=== PATIENT | male | born 1955 | race Caucasian/White ===

== ENCOUNTER → 2020-05-12 11:20 | Outpatient (BNVA) | payer MEDICARE, OTHER, SELFPAY | PROVIDERS: Visit Provider Family Medicine | DX: I10 Essential (primary) hypertension (principal) | CPT/HCPCS: 80053; 80061; 85025 ==

== ENCOUNTER → 2020-09-01 12:10 | Outpatient (BNVA) | payer MEDICARE, OTHER, SELFPAY | PROVIDERS: Visit Provider Family Medicine | DX: C61 Malignant neoplasm of prostate (principal) | CPT/HCPCS: 84153; 84403 ==

== ENCOUNTER → 2020-09-23 09:21 | Outpatient (BNVA) | payer MEDICARE, OTHER, SELFPAY | PROVIDERS: Visit Provider Radiology Radiation Oncology | DX: C61 Malignant neoplasm of prostate (principal) | CPT/HCPCS: 73030; 73502 ==

== ENCOUNTER → 2020-12-15 13:57 | Outpatient (BNVA) | payer MEDICARE, OTHER, SELFPAY | PROVIDERS: Visit Provider Radiology Radiation Oncology | DX: C61 Malignant neoplasm of prostate (principal); R97.20 Elevated prostate specific antigen [PSA] | CPT/HCPCS: 84153; 84403 ==

== ENCOUNTER → 2021-10-20 14:19 | Outpatient (BNVA) | payer MEDICARE, OTHER, SELFPAY | PROVIDERS: Visit Provider Nurse Practitioner Family | DX: C61 Malignant neoplasm of prostate (principal); H66.002 Acute suppurative otitis media without spontaneous rupture of ear drum, left ear; H61.23 Impacted cerumen, bilateral; H61.20 Impacted cerumen, unspecified ear | CPT/HCPCS: 84153; 84403 ==

== ENCOUNTER 2021-11-03 11:35 | Emergency (ER) | payer MEDICARE, SELFPAY ==
[2021-11-03] VITALS (9 sets, daily range): BP systolic 116–153; BP diastolic 82–112; PULSE 75–86; RESP 15–21; TEMP 36.6; O2SAT 95–100
--- NOTE | 2021-11-03 12:00 | ECG_ITS ---
[facility] Test Date: 2021-11-03 Pat Name: Ermias Sol Department: Room: Gender: Male Patient Services Coordinator: : 1955 Requested By: Bertha Jacobo Order Number: [id number] Sugey MD: Francheska Howard M.D. Measurements Intervals [place] Rate: 86 P: 25 ME: 159 QRS: 18 QRSD: 97 T: 0 QT: 364 QTc: 437 Interpretive Statements SINUS RHYTHM POSSIBLE LEFT ATRIAL ENLARGEMENT [-0.1mV P-WAVE IN V1/V2] Compared to ECG 01/25/2017 04:01:26 No significant changes Electronically Signed On 11-03-2021 17:08:22 DISTRIBUTION TECH by Francheska Howard M.D. [id number]
--- NOTE | 2021-11-03 12:00 | XR_ITS ---
WS: [id number] CHEST XRAY TECHNIQUE: Portable chest. CLINICAL INFORMATION: chest pain COMPARISON: January 24, 2017 FINDINGS: Heart: Cardiomegaly. Aortic calcification. Lungs: Lungs are clear. No consolidation or pleural effusion. No acute pulmonary infiltrates. Bones: Normal visualized bony structures. XR/XR chest 1V portable [id number] IMPRESSION: No acute chest findings
[2021-11-03 12:11] LABS: Basophils % 0.3 %; Eosinophils # 0.2 10^3/uL (0.0-0.8); Eosinophils % 2.8 %; Hematocrit 47.2 % (42.0-52.0); Hemoglobin 15.9 g/dL (11.7-16.6); Lymphocytes % 29.9 %; Mean Corpuscular HGB Conc 33.7 g/dL (30.0-36.0); Mean Corpuscular Hemoglobin 28.2 pg (28.0-34.0); Mean Corpuscular Volume 83.7 fl (80-94); Mean Platelet Volume 9.3 fL (7.4-10.4); Monocytes # 0.7 10^3/uL (0.2-0.9); Monocytes % 10.5 %; Neutrophils # 3.72 10^3/uL (1.8-7.7); Neutrophils % 55.6 %; Nucleated Red Blood Cells % 0 %; Platelet Count 322 10^3/cmm (130-400); Red Blood Count 5.64 10^6/uL (4.1-5.3); Red Cell Distribution Width 16.7 % (12.1-15.1); White Blood Count 6.7 10^3/uL (4.0-10.0)
--- NOTE | 2021-11-03 13:24 | ED_ITS ---
HPI - Chest Pain General: Chief Complaint: Chest Pain Stated Complaint: Chest Pain, Dr Sent Time Seen by Provider: 11/03/21 13:16 History of Present Illness: XT 6-year-old male presents emergency room complaining of intermittent chest discomfort for last 3 days. Radiates into his neck and the back. He states it usually gets better when he works more today he took a sublingual nitro with some relief of discomfort he has no discomfort at this time. EKG does not show any acute abnormalities initially. He has a history of hypertension he does take sildenafil. Does not take any for some time. He does get short of breath with these episodes. MD complaint: chest pain Pertinent past history: coronary artery disease Onset (ago): minute(s) Timing of current episode: episodic Onset: during rest Pain location: substernal Pain radiation: back Quality: tightness and heaviness Exacerbating factors: nothing Associated symptoms: Reports dyspnea; Deny abdominal pain, diaphoresis, fever(s), leg edema, nausea, palpitations, sense of impending doom, syncope or vomiting Treatment prior to arrival: none Review of Systems Const: Denies: fever(s) or diaphoresis Card: Denies: palpitations or syncope Resp: Reports: dyspnea GI: Denies: abdominal pain, nausea or vomiting [facility] ED PFSH: Medical History ASVD (arteriosclerotic vascular disease) Dyslipidemia Hypertension Prostate CA (~2017) Surgical History Hx of appendectomy Family History Father Cancer Mother Heart attack Social History Smoking and tobacco status: never smoked Marital status: Physical Exam Const: COMMON NORMALS: no acute distress GENERAL APPEARANCE: cooperative and comfortable ORIENTATION/CONSCIOUSNESS: Yes awake, Yes oriented to person, Yes oriented to place and Yes oriented to time HENMT: COMMON NORMALS: normocephalic, atraumatic and hearing grossly normal bilaterally HEAD & SCALP: normocephalic and atraumatic Neck/C-Spine: COMMON NORMALS: no JVD Resp: COMMON NORMALS: normal respiratory effort, No retractions, No use of accessory muscles and clear to auscultation bilaterally AUSCULTATION: clear to auscultation bilaterally Cardio: COMMON NORMALS: no JVD, regular rate, regular rhythm and No murmurs present (Cardio) RATE: regular rate RHYTHM: regular rhythm GI: COMMON NORMALS: Soft to palpation and No hepatosplenomegaly present AUSCULTATION: Yes normoactive bowel sounds PALPATION: Yes Soft to palpation, No Tenderness to palpation present (GI), No Guarding due to palpation present (GI) and Yes No hepatosplenomegaly present Extremity: COMMON NORMALS: normal to inspection, capillary refill normal, no clubbing, cyanosis or edema, no calf tenderness and no pedal edema Neuro: SENSORIUM/ORIENTATION: Yes oriented to person, Yes oriented to place and Yes oriented to time Skin: COMMON NORMALS: no rashes or lesions noted GENERAL SKIN EXAM: no rashes or lesions noted Course Vital Signs: Vital signs: Vital Signs Temperature 97.8 F 11/03/21 11:57 Pulse Rate 80 11/03/21 16:37 Respiratory Rate 21 H 11/03/21 16:37 Blood Pressure 146/100 11/03/21 16:37 Pulse Oximetry 96 11/03/21 16:37 MDM - Chest Pain Medical Decision Making Troponin negative x2 no acute ST changes on his EKG. We will have him stop any use of the sildenafil and start isosorbide mononitrate 30 mg daily. Continue his other medications. Also have him start baby aspirin daily however the case management set him up for a Lexiscan sestamibi stress test. Return if he has further problems with Medical Records I reviewed the patient's medical records. Lab Data I reviewed the patient's lab results. : 11/03/21 12:00 11/03/21 13:32 Radiology Impressions Chest X-Ray 11/03/21 12:00 IMPRESSION: No acute chest findings Laboratory Results WBC 6.7 10^3/uL (4.0-10.0) 11/03/21 12:00 RBC 5.64 10^6/uL (4.1-5.3) H 11/03/21 12:00 Hgb 15.9 g/dL (11.7-16.6) 11/03/21 12:00 Hct 47.2 % (42.0-52.0) 11/03/21 12:00 MCV 83.7 fl (80-94) 11/03/21 12:00 MCH 28.2 pg (28.0-34.0) 11/03/21 12:00 MCHC 33.7 g/dL (30.0-36.0) 11/03/21 12:00 RDW 16.7 % (12.1-15.1) H 11/03/21 12:00 Plt Count 322 10^3/cmm (130-400) 11/03/21 12:00 MPV 9.3 fL (7.4-10.4) 11/03/21 12:00 Neut % (Auto) 55.6 % 11/03/21 12:00 Lymph % (Auto) 29.9 % 11/03/21 12:00 [place] % (Auto) 10.5 % 11/03/21 12:00 Eos % (Auto) 2.8 % 11/03/21 12:00 Baso % (Auto) 0.3 % 11/03/21 12:00 Neut # (Auto) 3.72 10^3/uL (1.8-7.7) 11/03/21 12:00 Lymph # (Auto) 2.0 10^3/uL (0.8-4.8) 11/03/21 12:00 [place] # (Auto) 0.7 10^3/uL (0.2-0.9) 11/03/21 12:00 Eos # (Auto) 0.2 10^3/uL (0.0-0.8) 11/03/21 12:00 Baso # (Auto) 0.0 10^3/uL (0.0-0.1) 11/03/21 12:00 Nucleated RBC % (auto) 0 % 11/03/21 12:00 Nucleated RBCs # 0.0 /100WBC 11/03/21 12:00 Sodium 136 mmol/L (136-145) 11/03/21 13:32 Potassium 3.8 mmol/L (3.5-5.1) 11/03/21 13:32 Chloride 100 mmol/L (98-107) 11/03/21 13:32 Carbon Dioxide 26 mmol/L (22-29) 11/03/21 13:32 Anion Gap 13.8 (5-19) 11/03/21 13:32 BUN 18 mg/dL (8-23) 11/03/21 13:32 Creatinine 0.7 mg/dL (0.7-1.2) 11/03/21 13:32 GFR Calculation 112.5 mL/min (90-130) 11/03/21 13:32 Glucose 89 mg/dL (65-115) 11/03/21 13:32 Calculated Osmolality 283 mOsm/kg (285-295) L 11/03/21 13:32 Calcium 9.2 mg/dL (8.5-10.5) 11/03/21 13:32 Total Bilirubin 0.3 mg/dL (0.15-1.2) 11/03/21 13:32 AST 24 U/L (0-40) 11/03/21 13:32 ALT 36 U/L (0-41) 11/03/21 13:32 Alkaline Phosphatase 88 IU/L (40-130) 11/03/21 13:32 Troponin T Baseline 6 ng/L (0-15) 11/03/21 13:32 Troponin T 120 Minute 6.00 ng/L (0-15) 11/03/21 15:41 Delta Troponin T TNP 11/03/21 15:41 Total Protein 7.3 g/dL (6.6-8.7) 11/03/21 13:32 Albumin 4.5 g/dL (3.5-5.2) 11/03/21 13:32 Globulin 2.8 g/dL (1.3-4.6) 11/03/21 13:32 Discharge Plan Discharge Patient Disposition: Home Clinical Impression: Atypical chest pain, HTN (hypertension) Condition: Stable Prescriptions: New isosorbide mononitrate 30 mg tablet extended release 24 hr 30 mg PO DAILY Qty: 30 0RF Discontinued sildenafil [Viagra] 100 mg tablet 100 mg PO DAILY PRN (Reason: sexual activity) Qty: 30 6RF Rx Instructions: administer 30 minutes to 4 hours before activity No Action nitroglycerin 0.4 mg tablet, sublingual 0.4 mg sublingual Q5M PRN (Reason: chest pain) Qty: 14 0RF Rx Instructions: do not exceed 3 doses per episode omeprazole 40 mg capsule,delayed release(DR/EC) 40 mg PO DAILY PRN (Reason: Heartburn) 0RF tamsulosin 0.4 mg capsule 0.4 mg PO DAILY 0RF diclofenac sodium 75 mg tablet,delayed release (DR/EC) 75 mg PO BID PRN (Reason: Pain) 0RF olmesartan-hydrochlorothiazide 20-12.5 mg tablet 1 tab PO DAILY 0RF Discharge Orders: Discharge ED (Routine); Ordered 11/03/21 Ordered By: Kavin Taylor Discharge Diet: Usual diet Discharge Activity: Limit activity as instructed Activity Restrictions/Additional Instructions: Avoid strenuous activities. Do not start the isosorbide mononitrate until 24 hours after the last time you took a sildenafil tablet. If you have any recurrent chest pain you can return to the emergency room. capacity manager will call to make arrangements. Outpatient Eleazar sestamibi stress test. Coding Level of Care Code ED Lock Technician for Erick Torres
[2021-11-03] MEDS: aspirin 81 mg Chew Tablet 324 MG PO (13:39)
--- NOTE | 2021-11-03 14:00 | ECG_ITS ---
[facility] Test Date: 2021-11-03 Pat Name: Ermias Sol Department: Room: Gender: Male Radiological Technician: : 1955 Requested By: Bertha Jacobo Order Number: [id number] Sugey MD: Francheska Howard M.D. Measurements Intervals [place] Rate: 80 P: 21 VA: 161 QRS: 8 QRSD: 110 T: 2 QT: 389 QTc: 449 Interpretive Statements SINUS RHYTHM POSSIBLE LEFT ATRIAL ENLARGEMENT [-0.1mV P-WAVE IN V1/V2] Compared to ECG 01/25/2017 04:01:26 No significant changes Electronically Signed On 11-03-2021 17:11:17 SMOKEHOUSE OPERATOR by Francheska Howard M.D. [id number]
[2021-11-03 14:09] LABS: Alanine Aminotransferase 36 U/L (0-41); Albumin Level 4.5 g/dL (3.5-5.2); Alkaline Phosphatase 88 IU/L (40-130); Anion Gap 13.8 (5-19); Aspartate Amino Transferase 24 U/L (0-40); Blood Urea Nitrogen 18 mg/dL (8-23); Calcium 9.2 mg/dL (8.5-10.5); Carbon Dioxide 26 mmol/L (22-29); Chloride 100 mmol/L (98-107); Globulin 2.8 g/dL (1.3-4.6); Glomerular Filtration Rate 112.5 mL/min (90-130); Glucose 89 mg/dL (65-115); Osmolality Calculated 283 mOsm/kg (285-295); Potassium 3.8 mmol/L (3.5-5.1); Sodium 136 mmol/L (136-145); Total Bilirubin 0.3 mg/dL (0.15-1.2); Total Protein 7.3 g/dL (6.6-8.7)
[2021-11-03 14:51] LABS: Troponin(5th) Baseline 6 ng/L (0-15)
--- NOTE | 2021-11-04 07:54 | DCPLANNER ---
Addendum entered by Yolanda West 11/06/21 12:24: Patient does not have a primary care physician listed on his chart, immigration case manager called phone number [phone]. inpatient care manager rn unable to speak with patient at this time, a voicemail was left for patient to return community case manager phone call. Original Note: inpatient care manager rn had message to schedule an outpatient stress test for patient. inpatient care manager rn faxed signed order to centralized scheduling, who will call patient with appointment information.
== END 2021-11-03 17:16 | disposition home or self-care (01) ==
PROVIDERS: Physician Assistant; Emergency Provider Family Medicine
DX: R07.89 Other chest pain (principal); I10 Essential (primary) hypertension; E78.5 Hyperlipidemia, unspecified; Z85.46 Personal history of malignant neoplasm of prostate
CPT/HCPCS: 36415; 71045; 80053; 84484; 85025; 93005; 99284